=== PATIENT | male | born 1995 | race Caucasian/White ===

== ENCOUNTER 2018-03-24 16:50 | Inpatient (IN) | payer BC, OTHER ==
--- NOTE | 2018-03-24 16:57 | ED ---
SOB HPI - General Stated Complaint: SOB Time Seen by Provider: 03/24/18 16:50 Source: patient, EMS, RN notes reviewed Mode of arrival: EMS - History of Present Illness Initial Comments: This is a 22-year-old male with a benign past medical history who was apparently washing windows prior to admission when he started developing right- sided chest pain. Also some shortness of breath. The pain was sharp and radiates to his back he was seen in outpatient clinic and found on x-ray to have a pneumothorax. He was brought here for evaluation. He complains some pain is brought in by EMS. He did have hypoxemia less he was on nasal cannula oxygen. Is no prior history of pneumothorax no prior history of chest trauma. He is a nonsmoker no other modifying factors at this time MD Complaint: shortness of breath - Related Data Home Medications Medication Instructions Recorded Confirmed No Known Home Medications 03/24/18 03/24/18 Allergies Allergy/AdvReac Type Severity Reaction Status Date / Time No Known Allergies Allergy Verified 03/24/18 17:01 Review of Systems ROS Statement: Those systems with pertinent positive or pertinent negative responses have been documented in the HPI. ROS Other: All systems not noted in ROS Statement are negative. Past Medical History Additional Past Medical History / Comment(s): heart murmur History of Any Multi-Drug Resistant Organisms: None Reported Past Surgical History: No Surgical Hx Reported Past Psychological History: No Psychological Hx Reported Smoking Status: Never smoker Past Alcohol Use History: None Reported Past Drug Use History: None Reported General Exam - General Exam Comments Initial Comments: This is a well-developed well-nourished awake alert oriented 3 male General appearance: alert, anxious, in distress Head exam: Present: atraumatic, normocephalic, normal inspection Eye exam: Present: normal appearance, PERRL, EOMI. Absent: scleral icterus, conjunctival injection, periorbital swelling ENT exam: Present: normal exam, mucous membranes moist Neck exam: Present: normal inspection, full ROM, other (Trachea is midline). Absent: tenderness, meningismus, lymphadenopathy Respiratory exam: Present: decreased breath sounds, other (Decreased breath sounds especially on the right.). Absent: respiratory distress, wheezes, rales , rhonchi, stridor Cardiovascular Exam: Present: regular rate, normal rhythm, normal heart sounds. Absent: systolic murmur, diastolic murmur, rubs, gallop, clicks GI/Abdominal exam: Present: soft, normal bowel sounds. Absent: distended, tenderness, guarding, rebound, rigid Extremities exam: Present: normal inspection, full ROM, normal capillary refill. Absent: tenderness, pedal edema, joint swelling, calf tenderness Back exam: Present: normal inspection Neurological exam: Present: alert, oriented X3, CN II-XII intact Psychiatric exam: Present: normal affect, normal mood Skin exam: Present: warm, dry, intact, normal color. Absent: rash Course Vital Signs 03/24/18 03/24/18 03/24/18 16:52 17:01 17:09 Temperature 97.9 F Pulse Rate 81 76 Respiratory 16 18 16 Rate Blood Pressure 99/57 129/72 O2 Sat by Pulse 100 98 Oximetry 03/24/18 03/24/18 03/24/18 17:26 17:51 18:24 Temperature Pulse Rate 93 92 91 Respiratory 16 16 16 Rate Blood Pressure 139/71 127/82 133/76 O2 Sat by Pulse 100 100 100 Oximetry - Reevaluation(s) Reevaluation #1: 03/24/18 19:37 I did discuss the case with radiologist who did call me he did seem to be x-ray evidence of some tension with respect to the pneumothorax initially clinically there was none. Reevaluation #2: 03/24/18 19:38 Reevaluation the patient is feeling much improved increased aeration on the right side. Procedures - Chest Tube Insertion Consent Obtained: emergent situation Time Out Performed: Yes Indication: Pneumothorax Placed on monitor/pulse oximetry: Yes Site Prep: Chloroprep Local Anesthesia: Lidocaine 1% Amount (mLs): 5 Insertion Site: Other (Second intercostal space anterior right chest mid clavicular line) Scalpel: #11 Tube Size (Norwegian): Other (Thora-vent) Returns: Air Sutured in Place: No (Adhesive) Attached to Suction: Yes Repeat X-ray Results: Other (Partial inflation) Patient Tolerated Procedure: well Medical Decision Making - Medical Decision Making The patient was observed for a period time and did feel much improved required minimal oxygen support. His pain is improved. I did discuss the case with Dr. Lockwood. He admitted for observation and further evaluation. Dr. Loera is being covered by the hospitalist group today. - EKG Data -: EKG Interpreted by Me EKG shows normal: sinus rhythm (Sinus rhythm rate of 84. Interval 140 QRS duration 116 daily since QTC of . Word axis incomplete right bundle- branch block no acute ST-T wave changes) - Radiology Data Radiology results: report reviewed (Review the repeat x-ray #2 reveals good inflation of the right lung.), image reviewed Critical Care Time Critical Care Time: Yes Critical Care Time: 32 minutes of critical care time which includes discussion with paramedics regarding the transport history physical labs x-rays multiple reevaluation the patient to responsive therapy this does not include the procedure tube thoracostomy placement. Discussion with the admitting physician admission orders and documentation of the above. Disposition Clinical Impression: Spontaneous pneumothorax, Thoracostomy tube in place Disposition: ADMITTED IP TO THIS [facility] Condition: Stable Referrals: Luc Loera DO [Primary Care Provider] - 1-2 days
[2018-03-24] MEDS ORDERED: LIDOCAINE 1% INJ 10MG/ML (20 ML MDV) SQ ONE (17:11)
[2018-03-24] MEDS ORDERED: MIDAZOLAM 1 MG/ML 5 ML VIAL IV STA (17:13)
[2018-03-24] MEDS ORDERED: fentaNYL (PF) 50 MCG/ML 2 ML AMP IV STA (17:14)
--- NOTE | 2018-03-24 17:19 | XR ---
EXAMINATION TYPE: XR chest 1V portable DATE OF EXAM: 03/24/2018 COMPARISON: 12/17/2011 HISTORY: Short of breath TECHNIQUE: Single frontal view of the chest is obtained. FINDINGS: There is a large right pneumothorax. There is some shift of the heart and mediastinum to t he left side. There are chest leads. Bony thorax is intact. IMPRESSION: 100% right sided pneumothorax with some tension. This exam was discussed with ER micah henderson at 5:10 PM.
--- NOTE | 2018-03-24 17:58 | XR ---
EXAMINATION TYPE: XR chest 1V portable DATE OF EXAM: 03/24/2018 COMPARISON: Today HISTORY: Pneumothorax TECHNIQUE: Single frontal view of the chest is obtained. FINDINGS: There is a right chest tube that appears to be in good position. There is 100% right pneum othorax with shift of the heart and mediastinum to the left side. IMPRESSION: Persistent tension right pneumothorax without change.
--- NOTE | 2018-03-24 18:13 | XR ---
EXAMINATION TYPE: XR chest 1V portable DATE OF EXAM: 03/24/2018 COMPARISON: Today HISTORY: Follow-up pneumothorax TECHNIQUE: Single frontal view of the chest is obtained. FINDINGS: Right chest tube is in good position. There is an approximate 25% right pneumothorax. Trac hea is midline. IMPRESSION: Significant improvement in the right sided pneumothorax.
[2018-03-24] MEDS ORDERED: fentaNYL (PF) 50 MCG/ML 2 ML AMP IVP STA (19:15)
[2018-03-24] MEDS ORDERED: ACETAMINOPHEN TAB 325 MG TAB PO PRN (19:39)
[2018-03-24] MEDS ORDERED: NALOXONE 0.4 MG/ML 1 ML VIAL IV PRN (19:39)
[2018-03-24] MEDS: SODIUM CHLORIDE 0.9% 1,000 ML IV SCH (20:31)
[2018-03-24 20:55] VITALS: BMI 18.3
[2018-03-24] MEDS: HYDROmorphone 0.5 MG/0.5 ML SYRINGE IVP PRN (22:03)
[2018-03-25] MEDS: HYDROmorphone 0.5 MG/0.5 ML SYRINGE IVP PRN ×4 (03:34→18:45)
--- NOTE | 2018-03-25 07:26 | XR ---
EXAMINATION TYPE: XR chest 1V portable DATE OF EXAM: 03/25/2018 Comparison: 03/24/2018 Clinical History: 22-year-old male with pain, follow-up spontaneous pneumothorax on the right Findings: Slight dextroconvex scoliosis. Heart normal size. There is slight shift of the heart towards the left and enlargement of the patient's right-sided pneumothorax, now moderate in size, estimated at 40%. T he pleural edge measures 4.7 cm to the apex there is prominent lateral component measuring 2.4 cm. A Thoravent is present in the first intercostal space on the right. Patchy right infrahilar and right b asilar opacity likely represents atelectasis. IMPRESSION: 1. Right-sided Thora vent in place within the first intercostal space. 2. Enlarging right-sided pneumothorax estimated at 40%. There is slight shift of the heart towards th e left; developing tension not excluded. Critical findings (#2) called to nurse Brewer on [facility] at 7:20am.
--- NOTE | 2018-03-25 09:51 | P.GSCN ---
History of Present Illness Consult date: 03/25/18 Reason for Consult: Spontaneous pneumothorax Requesting physician: Yesica Lockwood History of present illness: This is a 22-year-old who follows with Dr. Luc Loera on an outpatient basis. He has no previous medical history other than questionable exercise-induced asthma when he was in his early teens for which she received no treatment. Apparently he had been washing windows and had sudden right-sided sharp chest pain and shortness of breath. He presented to an outpatient clinic, a chest x- ray was completed demonstrating 100% pneumothorax on the right side. He was sent to the emergency room where thoravent was placed by the emergency room physicians with good re-expansion of the lung. This young man was admitted for further evaluation and treatment. This morning's chest x-ray demonstrated enlargement of the right-sided pneumothorax despite thoravent treatment. Dr. Ford from cardiothoracic surgery was consulted regarding management. Of note , he states he has never had a pneumothorax in the past. Review of Systems Review of systems was completed and was negative except as noted in the HPI. - Cardiovascular Reports chest pain - Respiratory Reports dyspnea Past Medical History Additional Past Medical History / Comment(s): heart murmur, mono 2013, seasonal allergies History of Any Multi-Drug Resistant Organisms: None Reported Past Surgical History: No Surgical Hx Reported Past Psychological History: No Psychological Hx Reported Smoking Status: Never smoker Past Alcohol Use History: None Reported Past Drug Use History: None Reported Medications and Allergies Home Medications Medication Instructions Recorded Confirmed Type No Known Home Medications 03/24/18 03/24/18 History Allergies Allergy/AdvReac Type Severity Reaction Status Date / Time No Known Allergies Allergy Verified 03/24/18 17:01 Surgical - Exam Vital Signs Temp Pulse Resp BP Pulse Ox 97.9 F 81 16 99/57 100 03/24/18 16:52 03/24/18 16:52 03/24/18 16:52 03/24/18 16:52 03/24/18 16:52 - General well developed, well nourished, no distress, no pain - Eyes PERRL, normal ocular movement - ENT no hearing loss - Neck no masses, no bruits, trachea midline - Respiratory Lungs sounds diminished on the right. Respirations even, nonlabored. He was on 2 L nasal cannula with oxygen saturation 99%. Right thoravent present to anterior chest wall, positive fluctuation of the red diaphragm with coughing indicating air leak present. - Cardiovascular S1, S2 present. Regular rate and rhythm. Palpable peripheral pulses bilaterally. No edema present. No calf pain or tenderness noted. - Abdomen Abdomen: soft, non tender, bowel sounds - Genitourinary Deferred - Rectum Deferred - Integumentary Skin is warm and dry with evidence of good perfusion. no rash, no growths, no abnormal pigmentation - Neurologic normal coordination, normal sensation - Psychiatric oriented to time, oriented to person, oriented to place, speech is normal, memory intact Results - Imaging Chest x-ray: report reviewed, image reviewed Assessment and Plan (1) Spontaneous pneumothorax Current Visit: Yes Status: Acute Code(s): J93.83 - OTHER PNEUMOTHORAX SNOMED Code(s): 43849078 (2) Thoracostomy tube in place Current Visit: Yes Status: Acute Code(s): Z96.89 - PRESENCE OF OTHER SPECIFIED FUNCTIONAL IMPLANTS SNOMED Code(s): 501244764 Plan: The patient was seen and examined at the bedside. Chart/diagnostics were reviewed. Will discuss the case with Dr. Ford. Thoravent connected to atrium with -20 cm wall suction. Encourage incentive spirometry use 10 times every hour. Patient needs to ambulate. 8 L high flow nasal cannula ordered. We will repeat chest x-ray. Medical management per primary care, pulmonology. Thank you Dr. Lockwood for this consult. We look forward to working with you in the care of your patient. Time with Patient: Greater than 30
--- NOTE | 2018-03-25 10:36 | XR ---
EXAMINATION TYPE: XR chest 1V portable DATE OF EXAM: 03/25/2018 Comparison: Earlier today Clinical History: 22-year-old male follow-up pneumothorax Findings: The cardiomediastinal silhouette, aorta, and pulmonary vasculature are within normal limits. Lungs and pleural spaces are clear. Right-sided dural vent is in place now seen within the second interco stal space. There is been reexpansion of the right lung. Impression: Reexpansion of the right lung with Thora vent in place.
[2018-03-25] MEDS ORDERED: KETOROLAC 30 MG/ML 1 ML VIAL IVP PRN (13:06)
--- NOTE | 2018-03-25 13:30 | P.CNPUL ---
History of Present Illness Consult date: 03/25/18 Requesting physician: Luc Loera Reason for consult: pneumothorax, abnormal CXR/CT Chief complaint: Right spontaneous pneumothorax History of present illness: Placido is a 22-year-old white male patient of Dr. Luc Loera, who presented to the emergency department per EMS on at 1650 with complaints of increased shortness of breath, right-sided chest pain. 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 Chest x- ray in the emergency room revealed 100% right pneumothorax with mediastinal shift to the left. Patient had a thoravent placed by the emergency room physician, and subsequent chest x-rays yesterday showed significant improvement of the right-sided pneumothorax with a residual of 25% right pneumothorax. However on today's chest x-rays from this morning patient was noted to have an enlarging right-sided pneumothorax estimated at 40% with slight shift of the heart towards the left, and the thoravent was placed to continuous wall suction. Cardiothoracic surgery was consulted, follow-up chest x-ray from 10: 00 today shows reexpansion of the right lung. Patient denies previous episodes of collapse, he is a nonsmoker, does not smoke marijuana or do any other recreational drugs. No history of trauma. Patient was seen this morning in consultation for spontaneous right pneumothorax, he is home and comfortable, there is a Thoravent in the right upper chest connected to continuous suction, is still a small air leak noted. Patient is on high flow oxygen at 8 L, with a pulse ox of 99%. He is achieving 2200 on the incentive spirometry, is having some moderate amount of discomfort in the right upper chest area at the insertion site of the Thoravent. This is reasonably well controlled by Dilaudid. Otherwise patient is fairly comfortable, no other medical history, no prior surgeries. Review of Systems All systems: negative Constitutional: Denies chills, Denies fever Eyes: denies blurred vision, denies pain Ears, nose, mouth and throat: Denies headache, Denies sore throat Cardiovascular: Denies chest pain, Denies shortness of breath Respiratory: Reports dyspnea, Reports pain, Denies cough Gastrointestinal: Denies abdominal pain, Denies diarrhea, Denies nausea, Denies vomiting Musculoskeletal: Denies myalgias Integumentary: Denies pruritus, Denies rash Neurological: Denies numbness, Denies weakness Psychiatric: Denies anxiety, Denies depression Endocrine: Denies fatigue, Denies weight change Past Medical History Additional Past Medical History / Comment(s): heart murmur, mono 2014, seasonal allergies History of Any Multi-Drug Resistant Organisms: None Reported Past Surgical History: No Surgical Hx Reported Past Psychological History: No Psychological Hx Reported Smoking Status: Never smoker Past Alcohol Use History: None Reported Past Drug Use History: None Reported Medications and Allergies Home Medications Medication Instructions Recorded Confirmed Type No Known Home Medications 03/24/18 03/24/18 History Allergies Allergy/AdvReac Type Severity Reaction Status Date / Time No Known Allergies Allergy Verified 03/24/18 17:01 Physical Exam Vitals: Vital Signs Temp Pulse Pulse Resp BP BP Pulse Ox 03/25/18 12:18 64 16 99 03/25/18 10:30 99 03/25/18 08:30 16 100 03/25/18 07:35 66 16 107/66 98 03/25/18 07:21 95 03/25/18 06:05 98.1 F 75 16 108/68 98 03/24/18 23:00 99.3 F 95 16 113/72 98 03/24/18 20:25 98.1 F 85 16 117/69 99 03/24/18 20:09 88 17 129/68 100 03/24/18 18:24 91 16 133/76 100 03/24/18 17:51 92 16 127/82 100 03/24/18 17:26 93 16 139/71 100 03/24/18 17:09 76 16 129/72 98 03/24/18 17:01 18 03/24/18 16:52 97.9 F 81 16 99/57 100 Intake and Output 03/24/18 03/25/18 03/25/18 22:59 06:59 14:59 Other: Voiding Method Toilet # Voids 1 1 Weight 68.5 kg 68.5 kg GENERAL EXAM: Alert, pleasant, thin and tall young white male, comfortable in no apparent distress. On 8 L per high flow nasal cannula HEAD: Normocephalic/atraumatic. EYES: Normal reaction of pupils, equal size. Conjunctiva pink, sclera white. NOSE: Clear with pink turbinates. THROAT: No erythema or exudates. NECK: No masses, no JVD, no thyroid enlargement, no adenopathy. CHEST: No chest wall deformity. right upper chest Thoravent in place connected to Pleuravac and continous wall suction, small air leak noted with deep inspiration LUNGS: Equal air entry with no crackles, wheeze, rhonchi or dullness. Diminished breath sounds bilaterally CVS: Regular rate and rhythm, normal S1 and S2, no gallops, no murmurs, no rubs ABDOMEN: Soft, nontender. No hepatosplenomegaly, normal bowel sounds, no guarding or rigidity. EXTREMITIES: No clubbing, no edema, no cyanosis, 2+ pulses and upper and lower extremities. MUSCULOSKELETAL: Muscle strength and tone normal. SPINE: No scoliosis or deformity SKIN: No rashes CENTRAL NERVOUS SYSTEM: Alert and oriented -3. No focal deficits, tone is normal in all 4 extremities. PSYCHIATRIC: Alert and oriented -3. Appropriate affect. Intact judgment and insight. Results - Diagnostic Findings Chest x-ray: report reviewed, image reviewed Additional studies: EKG reviewed Assessment and Plan Plan: Assessment: #1. Spontaneous right pneumothorax, status post Thoravent placement #2. Dyspnea, chest pain, hypoxemia, due to the above, improved #3. Lifetime nonsmoker Plan: Thoravent was placed to suction,and there is still a small air leak noted, follow-up chest x-ray showed reexpansion of the right lung. Continue pain control, continue incentive spirometry. Ambulation, continue high flow nasal cannula per CT surgery. The chest x-ray in the morning. I performed a history & physical examination of the patient and discussed their management with my nurse practitioner, Polina Slater. I reviewed the nurse practitioner's note and agree with the documented findings and plan of care. Lung sounds are positive diminished lung sounds. The findings and the impression was discussed with the patient. I attest to the documentation by the nurse practitioner.
--- NOTE | 2018-03-25 14:25 | P.HPIM ---
History of Present Illness Patient is a pleasant 22-year-old man came in none after an episode of coughing coughing ended up having spontaneous pneumothorax involving the entire right chest present did which has been shortness of breath patient has a chest tube in place now. With significant improvement in his symptoms. Patient was evaluated by cardiovascular thoracic surgery and pulmonary. Patient has a chest tube in place. No significant pain at this time. Patient will be started on nonsteroidal anti-inflammatory is rather than opiates for pain and try to avoid opiates. Off note patient does have signs consistent with Marfan syndrome including systolic murmur in the mitral area, positive wrist sign and Thumb sign and he is a tall gentleman. Patient is presently on 8 L of oxygen. Review of Systems REVIEW OF SYSTEMS: CONSTITUTIONAL: No fever, no malaise, no fatigue. HEENT: No recent visual problems or hearing problems. Denied any sore throat. CARDIOVASCULAR: No orthopnea, PND, no palpitations, no syncope. PULMONARY: Shortness of breath GASTROINTESTINAL: No diarrhea, no nausea, no vomiting, no abdominal pain. Normoactive bowel sounds. NEUROLOGICAL: No headaches, no weakness, no numbness. HEMATOLOGICAL: Denies any bleeding or petechiae. GENITOURINARY: Denies any burning micturition, frequency, or urgency. MUSCULOSKELETAL/RHEUMATOLOGICAL: Denies any joint pain, swelling, or any muscle pain. ENDOCRINE: Denies any polyuria or polydipsia. The rest of the 14-point review of systems is negative. Past Medical History Additional Past Medical History / Comment(s): heart murmur, mono 2014, seasonal allergies History of Any Multi-Drug Resistant Organisms: None Reported Past Surgical History: No Surgical Hx Reported Past Psychological History: No Psychological Hx Reported Smoking Status: Never smoker Past Alcohol Use History: None Reported Past Drug Use History: None Reported Medications and Allergies Home Medications Medication Instructions Recorded Confirmed Type No Known Home Medications 03/24/18 03/24/18 History Allergies Allergy/AdvReac Type Severity Reaction Status Date / Time No Known Allergies Allergy Verified 03/24/18 17:01 Physical Exam Vitals: Vital Signs Temp Pulse Pulse Resp BP BP Pulse Ox 03/25/18 12:18 64 16 99 03/25/18 10:30 99 03/25/18 08:30 16 100 03/25/18 07:35 66 16 107/66 98 06/29/18 07:21 95 03/25/18 06:05 98.1 F 75 16 108/68 98 03/24/18 23:00 99.3 F 95 16 113/72 98 03/24/18 20:25 98.1 F 85 16 117/69 99 03/24/18 20:09 88 17 129/68 100 03/24/18 18:24 91 16 133/76 100 03/24/18 17:51 92 16 127/82 100 03/24/18 17:26 93 16 139/71 100 03/24/18 17:09 76 16 129/72 98 03/24/18 17:01 18 03/24/18 16:52 97.9 F 81 16 99/57 100 Intake and Output 03/24/18 03/25/18 03/25/18 22:59 06:59 14:59 Other: Voiding Method Toilet # Voids 1 1 Weight 68.5 kg 68.5 kg PHYSICAL EXAMINATION: GENERAL: The patient is alert and oriented x3, not in any acute distress. Well developed, well nourished. HEENT: Pupils are round and equally reacting to light. EOMI. No scleral icterus. No conjunctival pallor. Normocephalic, atraumatic. No pharyngeal erythema. No thyromegaly. CARDIOVASCULAR: S1 and S2 present. No murmurs, rubs, or gallops. PULMONARY: Chest is clear to auscultation, no wheezing or crackles. Patient has a right-sided chest tube. ABDOMEN: Soft, nontender, nondistended, normoactive bowel sounds. No palpable organomegaly. MUSCULOSKELETAL: No joint swelling or deformity. EXTREMITIES: No cyanosis, clubbing, or pedal edema. NEUROLOGICAL: Gross neurological examination did not reveal any focal deficits. SKIN: No rashes. Thrombosis Risk Factor Assmnt - Choose All That Apply Any of the Below Risk Factors Present?: No Other Risk Factors: No Thrombosis Risk Factor Assessment Level: Very Low Risk Assessment and Plan Plan: -Spontaneous right-sided pneumothorax patient has a chest tube in place an prominent in place. -Possibility of Marfan's or some other congenital collagen connective tissue disorder, need to be further evaluated as an outpatient for Marfan's. Will need an echocardiogram as an outpatient. -Acute hypoxic respiratory failure secondary to right-sided pneumothorax.
[2018-03-25] MEDS: KETOROLAC 30 MG/ML 1 ML VIAL IVP PRN ×2 (15:06→21:22)
[2018-03-25] MEDS: FAMOTIDINE 20 MG TAB PO SCH ×2 (15:06→20:20)
[2018-03-25] MEDS: SODIUM CHLORIDE 0.9% 1,000 ML IV SCH (20:22)
[2018-03-26] MEDS: KETOROLAC 30 MG/ML 1 ML VIAL IVP PRN ×3 (05:03→18:44)
--- NOTE | 2018-03-26 08:18 | XR ---
EXAMINATION TYPE: XR chest 2V DATE OF EXAM: 03/26/2018 COMPARISON: Prior chest 03/25/2018 HISTORY: Pneumothorax TECHNIQUE: Frontal and lateral views of the chest are obtained on 3 images. FINDINGS: Right-sided chest tube is in place similar to prior, small apical right pneumothorax is pr esent. No evident pleural effusion. Heart is small. No other significant interval change. IMPRESSION: Small right apical pneumothorax. Indwelling chest tube.
[2018-03-26] MEDS: FAMOTIDINE 20 MG TAB PO SCH ×2 (09:12→20:52)
--- NOTE | 2018-03-26 10:01 | P.PN ---
Subjective Progress Note Date: 03/26/18 Principal diagnosis: Spontaneous right-sided pneumothorax. No previous medical history other than questionable exercise-induced asthma in his early teens for which he received no treatment. POD #2 thoravent placement by the emergency room physicians. Patient's currently sitting up in bed in no acute distress. States his pain is controlled on current medications. Denies shortness of breath. No new complaints. Objective - Vital Signs Vital signs: Vital Signs Temp 96.9 F L 03/26/18 06:37 Pulse 57 L 03/26/18 06:37 Resp 18 03/26/18 06:37 BP 132/77 03/26/18 06:37 Pulse Ox 100 03/26/18 06:37 Intake & Output 03/25/18 03/26/18 03/26/18 18:59 06:59 18:59 Intake Total 600 1500 Balance 600 1500 Weight 68.5 kg 68.5 kg Intake: Oral 600 1500 Other: Voiding Method Toilet # Voids 2 1 - Constitutional General appearance: Present: cooperative, no acute distress - Respiratory Details: Lungs sounds diminished on the right. Respirations even, nonlabored. Currently on 8 L high flow nasal cannula with oxygen saturation 100%. Able to achieve 3500 mL on his incentive spirometry. Right thoravent present to anterior chest wall, positive fluctuation of the red diaphragm with coughing, connected to atrium with no air leaking into the atrium. - Cardiovascular Details: S1, S2 present. Regular rate and rhythm. Palpable peripheral pulses bilaterally. No edema present. No calf pain or tenderness noted. - Gastrointestinal Gastrointestinal Comment(s): Abdomen soft, nontender, nondistended. Active bowel sounds 4 quadrants. Tolerating diet. - Genitourinary Genitourinary Comment(s): Continues to void clear, yellow urine. - Integumentary Integumentary Comment(s): Skin is warm and dry with evidence of good perfusion. - Neurologic Neurologic: Present: CNII-XII intact - Musculoskeletal Musculoskeletal: Present: gait normal, strength equal bilaterally - Psychiatric Psychiatric: Present: A&O x's 3, appropriate affect, intact judgment & insight - Allied health notes Allied health notes reviewed: nursing - Imaging and Cardiology Chest x-ray: report reviewed, image reviewed Assessment and Plan (1) Spontaneous pneumothorax Current Visit: Yes Status: Acute Code(s): J93.83 - OTHER PNEUMOTHORAX SNOMED Code(s): 55456337 (2) Thoracostomy tube in place Current Visit: Yes Status: Acute Code(s): Z96.89 - PRESENCE OF OTHER SPECIFIED FUNCTIONAL IMPLANTS SNOMED Code(s): 186536850 Plan: 1. Atrium placed to waterseal. Will check x-ray in the morning. 2. Continue 8 L high flow nasal cannula. 3. Encourage incentive spirometry use 10 times every hour. 4. Pain management with ordered medications. 5. Encourage ambulation in the hallway. 6. Medical management per primary care, pulmonology. 7. No indication for surgical intervention at this time. 8. More recommendations to follow. Time with Patient: Greater than 30
--- NOTE | 2018-03-26 11:24 | P.PN ---
Subjective Progress Note Date: 03/26/18 Principal diagnosis: Acute right-sided spontaneous pneumothoraxShahana Cummins is a 22-year-old white male patient of Dr. Luc Loera, who presented to the emergency department per EMS on at 1650 with complaints of increased shortness of breath, right-sided chest pain. 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 Chest x- ray in the emergency room revealed 100% right pneumothorax with mediastinal shift to the left. Patient had a thoravent placed by the emergency room physician, and subsequent chest x-rays yesterday showed significant improvement of the right-sided pneumothorax with a residual of 25% right pneumothorax. However on today's chest x-rays from this morning patient was noted to have an enlarging right-sided pneumothorax estimated at 40% with slight shift of the heart towards the left, and the thoravent was placed to continuous wall suction. Cardiothoracic surgery was consulted, follow-up chest x-ray from 10: 00 today shows reexpansion of the right lung. Patient denies previous episodes of collapse, he is a nonsmoker, does not smoke marijuana or do any other recreational drugs. No history of trauma. Patient was seen this morning in consultation for spontaneous right pneumothorax, he is home and comfortable, there is a Thoravent in the right upper chest connected to continuous suction, is still a small air leak noted. Patient is on high flow oxygen at 8 L, with a pulse ox of 99%. He is achieving 2200 on the incentive spirometry, is having some moderate amount of discomfort in the right upper chest area at the insertion site of the Thoravent. This is reasonably well controlled by Dilaudid. Otherwise patient is fairly comfortable, no other medical history, no prior surgeries. The patient is seen again today 03/26/2018 in follow-up on the regular medical floor. He is awake and alert in no acute distress. He is breathing easier today as compared to yesterday. Today's chest x-ray shows a small apical pneumothorax. Thoravent remains in place currently to waterseal. He remains on 8 L high flow nasal cannula. He is working well with the incentive spirometer. Objective - Vital Signs Vital signs: Vital Signs Temp 96.9 F L 03/26/18 06:37 Pulse 57 L 03/26/18 06:37 Resp 18 03/26/18 06:37 BP 132/77 03/26/18 06:37 Pulse Ox 100 03/26/18 06:37 Intake & Output 03/25/18 03/26/18 03/26/18 18:59 06:59 18:59 Intake Total 600 1500 Balance 600 1500 Weight 68.5 kg 68.5 kg Intake: Oral 600 1500 Other: Voiding Method Toilet # Voids 2 1 - Exam GENERAL EXAM: Alert, pleasant, thin and tall young white male, comfortable in no apparent distress. On 8 L per high flow nasal cannula HEAD: Normocephalic/atraumatic. EYES: Normal reaction of pupils, equal size. Conjunctiva pink, sclera white. NOSE: Clear with pink turbinates. THROAT: No erythema or exudates. NECK: No masses, no JVD, no thyroid enlargement, no adenopathy. CHEST: No chest wall deformity. right upper chest Thoravent placed to waterseal LUNGS: Equal air entry with no crackles, wheeze, rhonchi or dullness. Diminished breath sounds bilaterally CVS: Regular rate and rhythm, normal S1 and S2, no gallops, no murmurs, no rubs ABDOMEN: Soft, nontender. No hepatosplenomegaly, normal bowel sounds, no guarding or rigidity. EXTREMITIES: No clubbing, no edema, no cyanosis, 2+ pulses and upper and lower extremities. MUSCULOSKELETAL: Muscle strength and tone normal. SPINE: No scoliosis or deformity SKIN: No rashes CENTRAL NERVOUS SYSTEM: Alert and oriented -3. No focal deficits, tone is normal in all 4 extremities. PSYCHIATRIC: Alert and oriented -3. Appropriate affect. Intact judgment and insight. Assessment and Plan Assessment: Assessment: #1. Acute hypoxic respiratory failure secondary to spontaneous right pneumothorax, status post Thoravent placement #2. Dyspnea, chest pain, hypoxemia, due to the above, improved #3. Lifetime nonsmoker Plan: The patient was seen and evaluated by Dr. Lockwood. Chest x-ray was reviewed. Currently set to water seal. Repeat a chest x-ray in the a.m. If he develops recurrent pneumothorax cardiothoracic services will plan for surgical intervention early next week. In the interim, we will increase his activity as tolerated. Continue to work with the incentive spirometer. We'll continue to follow and make further recommendations based on his clinical status.
--- NOTE | 2018-03-26 15:46 | P.PN ---
Subjective Patient was admitted with a spontaneous pneumothorax patient has a right-sided chest tube, suctioning was discontinued. His chest pain is well-controlled. Constitutional: Denied any fatigue denied any fever. Cardio vascular: denied any chest pain, palpitations Gastrointestinal denied any nausea vomiting Pulmonary: Denied any shortness of breath cough Neurologic denied any new focal deficits Objective - Vital Signs Vital signs: Vital Signs Temp 97.3 F L 03/26/18 15:00 Pulse 67 03/26/18 15:00 Resp 17 03/26/18 15:00 BP 109/71 03/26/18 15:00 Pulse Ox 100 03/26/18 15:00 Intake & Output 03/25/18 03/26/18 03/26/18 18:59 06:59 18:59 Intake Total 600 1500 Balance 600 1500 Weight 68.5 kg 68.5 kg Intake: Oral 600 1500 Other: Voiding Method Toilet # Voids 2 1 2 # Bowel Movements 1 - Exam PHYSICAL EXAMINATION: GENERAL: The patient is alert and oriented x3, not in any acute distress. Well developed, well nourished. HEENT: Pupils are round and equally reacting to light. EOMI. No scleral icterus. No conjunctival pallor. Normocephalic, atraumatic. No pharyngeal erythema. No thyromegaly. CARDIOVASCULAR: S1 and S2 present. No murmurs, rubs, or gallops. PULMONARY: Chest is clear to auscultation, no wheezing or crackles. Patient has a right-sided chest tube. ABDOMEN: Soft, nontender, nondistended, normoactive bowel sounds. No palpable organomegaly. MUSCULOSKELETAL: No joint swelling or deformity. EXTREMITIES: No cyanosis, clubbing, or pedal edema. NEUROLOGICAL: Gross neurological examination did not reveal any focal deficits. SKIN: No rashes. Assessment and Plan Plan: -Spontaneous right-sided pneumothorax patient has a chest tube in place -Possibility of Marfan's or some other congenital collagen connective tissue disorder, need to be further evaluated as an outpatient for Marfan's. Will need an echocardiogram as an outpatient. -Acute hypoxic respiratory failure secondary to right-sided pneumothorax.
[2018-03-26] MEDS: HYDROmorphone 0.5 MG/0.5 ML SYRINGE IVP PRN ×2 (16:03→23:26)
[2018-03-26] MEDS: SODIUM CHLORIDE 0.9% 1,000 ML IV SCH (19:34)
[2018-03-27] MEDS: KETOROLAC 30 MG/ML 1 ML VIAL IVP PRN ×3 (03:38→20:34)
--- NOTE | 2018-03-27 07:49 | P.PN ---
Subjective Progress Note Date: 03/27/18 Principal diagnosis: Spontaneous right-sided pneumothorax. No previous medical history other than questionable exercise-induced asthma in his early teens for which he received no treatment. POD #3 thoravent placement by the emergency room physicians. Patient's currently sitting up in bed in no acute distress. States his pain is controlled on current medications. Denies shortness of breath. No new complaints. Objective - Vital Signs Vital signs: Vital Signs Temp 96.8 F L 03/27/18 06:24 Pulse 82 03/27/18 06:24 Resp 18 03/27/18 06:24 BP 118/74 03/27/18 06:24 Pulse Ox 98 03/27/18 06:24 Intake & Output 03/26/18 03/27/18 03/27/18 18:59 06:59 18:59 Intake Total 1100 Balance 1100 Weight 68.5 kg Intake: Oral 1100 Other: Voiding Method Toilet Toilet # Voids 2 2 # Bowel Movements 1 - Constitutional General appearance: Present: cooperative, no acute distress - Respiratory Details: Lungs sounds diminished on the right. Respirations even, nonlabored. Currently on 8 L high flow nasal cannula with oxygen saturation 98%. Able to achieve 4000 mL on his incentive spirometry. Right thoravent present to anterior chest wall, placed to waterseal yesterday, positive fluctuation of the red diaphragm with coughing, connected to atrium with no air leaking into the atrium. - Cardiovascular Details: S1, S2 present. Regular rate and rhythm. Palpable peripheral pulses bilaterally. No edema present. No calf pain or tenderness noted. - Gastrointestinal Gastrointestinal Comment(s): Abdomen soft, nontender, nondistended. Active bowel sounds 4 quadrants. Tolerating diet. Positive bowel movement. - Genitourinary Genitourinary Comment(s): Continues to void clear, yellow urine. - Integumentary Integumentary Comment(s): Skin is warm and dry with evidence of good perfusion. - Neurologic Neurologic: Present: CNII-XII intact - Musculoskeletal Musculoskeletal: Present: gait normal, strength equal bilaterally - Psychiatric Psychiatric: Present: A&O x's 3, appropriate affect, intact judgment & insight - Allied health notes Allied health notes reviewed: nursing - Imaging and Cardiology Chest x-ray: image reviewed Assessment and Plan (1) Spontaneous pneumothorax Current Visit: Yes Status: Acute Code(s): J93.83 - OTHER PNEUMOTHORAX SNOMED Code(s): 69161001 (2) Thoracostomy tube in place Current Visit: Yes Status: Acute Code(s): Z96.89 - PRESENCE OF OTHER SPECIFIED FUNCTIONAL IMPLANTS SNOMED Code(s): 134698994 Plan: 1. Continue current method of treatment, atrium to waterseal. Will check x- ray in the morning. 2. Continue 8 L high flow nasal cannula. 3. Encourage incentive spirometry use 10 times every hour. 4. Pain management with ordered medications. 5. Encourage ambulation in the hallway. 6. Medical management per primary care, pulmonology. 7. Will monitor for resolution of pneumothorax, air leak and make determination regarding surgical intervention early this week. 8. More recommendations to follow. Time with Patient: Greater than 30
[2018-03-27] MEDS: FAMOTIDINE 20 MG TAB PO SCH ×2 (08:29→20:26)
--- NOTE | 2018-03-27 08:29 | XR ---
EXAMINATION TYPE: XR chest 2V DATE OF EXAM: 03/27/2018 COMPARISON: Prior chest x-ray 03/26/2018 HISTORY: Pneumothorax, chest tube TECHNIQUE: Frontal and lateral views of the chest are obtained. FINDINGS: Small right apical pneumothorax persists. Right-sided chest tube is in place. No evident e ffusion. IMPRESSION: No significant interval change. Chest tube in place, small right apical pneumothorax.
[2018-03-27] MEDS: HYDROmorphone 0.5 MG/0.5 ML SYRINGE IVP PRN (12:15)
--- NOTE | 2018-03-27 15:05 | P.PN ---
Subjective Progress Note Date: 03/27/18 Principal diagnosis: Acute right sided spontaneous pneumothorax Placido is a 22-year-old white male patient of Dr. Luc Loera, who presented to the emergency department per EMS on at 1650 with complaints of increased shortness of breath, right-sided chest pain. 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 Chest x- ray in the emergency room revealed 100% right pneumothorax with mediastinal shift to the left. Patient had a thoravent placed by the emergency room physician, and subsequent chest x-rays yesterday showed significant improvement of the right-sided pneumothorax with a residual of 25% right pneumothorax. However on today's chest x-rays from this morning patient was noted to have an enlarging right-sided pneumothorax estimated at 40% with slight shift of the heart towards the left, and the thoravent was placed to continuous wall suction. Cardiothoracic surgery was consulted, follow-up chest x-ray from 10: 00 today shows reexpansion of the right lung. Patient denies previous episodes of collapse, he is a nonsmoker, does not smoke marijuana or do any other recreational drugs. No history of trauma. Patient was seen this morning in consultation for spontaneous right pneumothorax, he is home and comfortable, there is a Thoravent in the right upper chest connected to continuous suction, is still a small air leak noted. Patient is on high flow oxygen at 8 L, with a pulse ox of 99%. He is achieving 2200 on the incentive spirometry, is having some moderate amount of discomfort in the right upper chest area at the insertion site of the Thoravent. This is reasonably well controlled by Dilaudid. Otherwise patient is fairly comfortable, no other medical history, no prior surgeries. The patient is seen again today 03/26/2018 in follow-up on the regular medical floor. He is awake and alert in no acute distress. He is breathing easier today as compared to yesterday. Today's chest x-ray shows a small apical pneumothorax. Thoravent remains in place currently to waterseal. He remains on 8 L high flow nasal cannula. He is working well with the incentive spirometer. Patient was reevaluated today on 03/27/2018, doing well, his thoravent remains in place, disconnected from wall suction, patient has a 10% right-sided pneumothorax, there and diaphragm in the device does not seem to be moving much. Which implies that no air leak is noted. Remains on high flow nasal cannula based on recent limited reports suggesting that high flow nasal cannula may improve rapid resolution of pneumothorax. But the patient is actually saturating fine on room air. Objective - Vital Signs Vital signs: Vital Signs Temp 96.8 F L 03/27/18 06:24 Pulse 82 03/27/18 06:24 Resp 18 03/27/18 06:24 BP 118/74 03/27/18 06:24 Pulse Ox 98 03/27/18 06:24 Intake & Output 03/26/18 03/27/18 03/27/18 18:59 06:59 18:59 Intake Total 1100 240 Balance 1100 240 Weight 68.5 kg Intake: Oral 1100 240 Other: Voiding Method Toilet Toilet # Voids 2 2 # Bowel Movements 1 - Exam GENERAL EXAM: Alert, pleasant, thin and tall young white male, comfortable in no apparent distress. On 8 L per high flow nasal cannula HEAD: Normocephalic/atraumatic. EYES: Normal reaction of pupils, equal size. Conjunctiva pink, sclera white. NOSE: Clear with pink turbinates. THROAT: No erythema or exudates. NECK: No masses, no JVD, no thyroid enlargement, no adenopathy. CHEST: No chest wall deformity. right upper chest Thoravent placed to waterseal LUNGS: Equal air entry with no crackles, wheeze, rhonchi or dullness. Diminished breath sounds bilaterally CVS: Regular rate and rhythm, normal S1 and S2, no gallops, no murmurs, no rubs ABDOMEN: Soft, nontender. No hepatosplenomegaly, normal bowel sounds, no guarding or rigidity. EXTREMITIES: No clubbing, no edema, no cyanosis, 2+ pulses and upper and lower extremities. MUSCULOSKELETAL: Muscle strength and tone normal. SPINE: No scoliosis or deformity SKIN: No rashes CENTRAL NERVOUS SYSTEM: Alert and oriented -3. No focal deficits, tone is normal in all 4 extremities. PSYCHIATRIC: Alert and oriented -3. Appropriate affect. Intact judgment and insight. Assessment and Plan Assessment: #1. Acute hypoxic respiratory failure secondary to spontaneous right pneumothorax, status post Thoravent placement #2. Dyspnea, chest pain, hypoxemia, due to the above, improved #3. Lifetime nonsmoker Recommendation: Continue present treatment plan, repeat chest x-ray in a.m., not quite ready for discharge planning at this point. Time with Patient: Less than 30
--- NOTE | 2018-03-27 16:06 | P.PN ---
Subjective Patient was admitted with a spontaneous pneumothorax patient has a right-sided chest tube, suctioning was discontinued. His chest pain is well-controlled. 03/27/2018 Patient's chest tube was removed, is clinically doing well and repeat chest x- ray tomorrow possibility of discharge tomorrow. Constitutional: Denied any fatigue denied any fever. Cardio vascular: denied any chest pain, palpitations Gastrointestinal denied any nausea vomiting Pulmonary: Denied any shortness of breath cough Neurologic denied any new focal deficits Objective - Vital Signs Vital signs: Vital Signs Temp 98.7 F 03/27/18 15:33 Pulse 65 03/27/18 15:33 Resp 18 03/27/18 15:33 BP 114/70 03/27/18 15:33 Pulse Ox 100 03/27/18 15:33 Intake & Output 03/26/18 03/27/18 03/27/18 18:59 06:59 18:59 Intake Total 1100 240 Balance 1100 240 Weight 68.5 kg Intake: Oral 1100 240 Other: Voiding Method Toilet Toilet # Voids 2 2 1 # Bowel Movements 1 - Exam PHYSICAL EXAMINATION: GENERAL: The patient is alert and oriented x3, not in any acute distress. Well developed, well nourished. HEENT: Pupils are round and equally reacting to light. EOMI. No scleral icterus. No conjunctival pallor. Normocephalic, atraumatic. No pharyngeal erythema. No thyromegaly. CARDIOVASCULAR: S1 and S2 present. No murmurs, rubs, or gallops. Patient has a prominent in place PULMONARY: Chest is clear to auscultation, no wheezing or crackles. Patient's chest tube was removed still has ABDOMEN: Soft, nontender, nondistended, normoactive bowel sounds. No palpable organomegaly. MUSCULOSKELETAL: No joint swelling or deformity. EXTREMITIES: No cyanosis, clubbing, or pedal edema. NEUROLOGICAL: Gross neurological examination did not reveal any focal deficits. SKIN: No rashes. Assessment and Plan Plan: -Spontaneous right-sided pneumothorax patient has a chest tube was removed and thorough went in place -Possibility of Marfan's or some other congenital collagen connective tissue disorder, need to be further evaluated as an outpatient for Marfan's. Will need an echocardiogram as an outpatient. -Acute hypoxic respiratory failure secondary to right-sided pneumothorax.
[2018-03-28] MEDS: HYDROmorphone 0.5 MG/0.5 ML SYRINGE IVP PRN (00:21)
[2018-03-28] MEDS: SODIUM CHLORIDE 0.9% 1,000 ML IV SCH (04:40)
[2018-03-28] MEDS: KETOROLAC 30 MG/ML 1 ML VIAL IVP PRN ×2 (05:27→11:30)
[2018-03-28 06:27] VITALS: BP 115/81; PULSE 67; RESP 16; TEMP 97.6
--- NOTE | 2018-03-28 08:13 | XR ---
EXAMINATION TYPE: XR chest 2V DATE OF EXAM: 03/28/2018 COMPARISON: 03/27/2018 HISTORY: 22-year-old male follow-up right-sided pneumothorax TECHNIQUE: Frontal and lateral views FINDINGS: Heart normal size. Aorta and pulmonary vasculature within normal limits. Right-sided Thora vent remai ns in place. Right apical pneumothorax with small and minimally larger from previous measuring 2.9 cm in the apical margin versus 2.0 cm on 03/27/2018. Otherwise, no consolidation or pleural effusion. IMPRESSION: Continued small right apical pneumothorax, slightly increased in size (2.9 cm versus 2.0 cm, previous ly). Thora vent remains in place.
[2018-03-28 08:18] LABS: INR 1.1 (<1.2); Partial Thromboplastin Time 23.7 sec (22.0-30.0); Prothrombin Time 10.5 sec (9.0-12.0)
[2018-03-28 08:20] LABS: Basophils % (A) 0 %; Eosinophils # (A) 0.2 k/uL (0-0.7); Eosinophils % (A) 4 %; HCT 43.5 % (39.0-53.0); HGB 15.1 gm/dL (13.0-17.5); Lymphocytes # (A) 1.5 k/uL (1.0-4.8); Lymphocytes % (A) 33 %; MCH 30.4 pg (25.0-35.0); MCHC 34.7 g/dL (31.0-37.0); MCV 87.7 fL (80.0-100.0); Mean Platelet Volume 6.4; Monocytes # (A) 0.3 k/uL (0-1.0); Monocytes % (A) 6 %; Neutrophils # (A) 2.7 k/uL (1.3-7.7); Neutrophils % (A) 56 %; Platelet Count 199 k/uL (150-450); RBC 4.96 m/uL (4.30-5.90); RDW 12.7 % (11.5-15.5); WBC 4.8 k/uL (3.8-10.6)
[2018-03-28 08:38] LABS: ALT 25 U/L (21-72); AST 19 U/L (17-59); Alkaline Phosphatase 74 U/L (38-126); Anion Gap 10 mmol/L; Blood Urea Nitrogen 20 mg/dL (9-20); Calcium 9.1 mg/dL (8.4-10.2); Carbon Dioxide 29 mmol/L (22-30); Chloride 104 mmol/L (98-107); Glucose 111 mg/dL (74-99); Potassium 4.7 mmol/L (3.5-5.1); Sodium 143 mmol/L (137-145); Total Bilirubin 0.5 mg/dL (0.2-1.3); Total Protein 6.2 g/dL (6.3-8.2)
[2018-03-28] MEDS: FAMOTIDINE 20 MG TAB PO SCH (08:38)
--- NOTE | 2018-03-28 10:56 | P.PN ---
Subjective Progress Note Date: 03/28/18 Principal diagnosis: Spontaneous right-sided pneumothorax. No previous medical history other than questionable exercise-induced asthma in his early teens for which he received no treatment. POD #4 thoravent placement by the emergency room physicians. Patient's currently sitting up to bedside chair, in no acute distress. Family member at bedside. States his pain is controlled on current medications. Denies shortness of breath. No new complaints. He reports that he has been ambulating in the hallway without difficulty. Right anterior chest Thoravent showing air leak. Objective - Vital Signs Vital signs: Vital Signs Temp 97.6 F 03/28/18 05:25 Pulse 67 03/28/18 05:25 Resp 16 03/28/18 05:25 BP 115/81 03/28/18 05:25 Pulse Ox 97 03/28/18 05:25 Intake & Output 03/27/18 03/28/18 03/28/18 18:59 06:59 18:59 Intake Total 480 Balance 480 Intake: Oral 480 Other: # Voids 1 1 - Constitutional General appearance: Present: cooperative, no acute distress - Respiratory Details: Lungs sounds essentially clear throughout. Respirations are symmetrical and nonlabored. Oxygen saturation are 97% on room air. He is achieving 4000 mL on his incentive spirometry. Right anterior chest Thoravent in place with positive air leak. - Cardiovascular Details: Regular rhythm and rate. S1 and S2 present, negative for S3, gallop or murmur. No edema present. - Gastrointestinal Gastrointestinal Comment(s): Abdomen is soft, nontender and nondistended. Active bowel sounds all 4 abdominal quadrants. Tolerating oral intake. No guarding or rigidity. No organomegaly. - Genitourinary Genitourinary Comment(s): Voiding clear yellow urine. - Integumentary Integumentary Comment(s): Skin is warm and dry. No clubbing or cyanosis present. No rash or abnormal pigmentation present. - Neurologic Neurologic: Present: CNII-XII intact - Musculoskeletal Musculoskeletal: Present: gait normal, strength equal bilaterally - Psychiatric Psychiatric: Present: A&O x's 3, appropriate affect, intact judgment & insight - Allied health notes Allied health notes reviewed: nursing - Labs CBC & Chem 7: 03/28/18 07:53 03/28/18 07:53 Labs: Abnormal Lab Results - Last 24 Hours (Table) 03/28/18 Range/Units 07:53 Glucose 111 H (74-99) mg/dL Total Protein 6.2 L (6.3-8.2) g/dL - Imaging and Cardiology Chest x-ray: report reviewed, image reviewed Assessment and Plan (1) Spontaneous pneumothorax Current Visit: Yes Status: Acute Code(s): J93.83 - OTHER PNEUMOTHORAX SNOMED Code(s): 86161104 (2) Thoracostomy tube in place Current Visit: Yes Status: Acute Code(s): Z96.89 - PRESENCE OF OTHER SPECIFIED FUNCTIONAL IMPLANTS SNOMED Code(s): 804741239 Plan: 1. Continue Thoravent. Will check x-ray daily. 2. Medical management per primary care, pulmonology. 3. Encourage incentive spirometry use 10 times every hour. 4. Pain management with ordered medications. 5. Encourage ambulation in the hallway. 6. Will monitor for resolution of pneumothorax. 8. More recommendations to follow based on patient's clinical course. Per the cardiothoracic surgery standpoint the patient may be discharged home and monitored on an outpatient basis with his Thoravent in place. He has been instructed on care of his Thoravent. We will schedule a follow-up appointment for this 04/01/2018 to reevaluate his chest x-ray and air leak. Time with Patient: Greater than 30
--- NOTE | 2018-03-28 14:39 | P.DS ---
Providers Date of admission: 03/24/18 19:39 Attending physician: Luc Loera Consults: 03/24/18 19:40 Consult Physician Urgent Consulting Provider: Yesica Lockwood Consult Reason/Comments: Pneumothorax Do you want consulting provider notified?: Already Contacted 03/25/18 07:36 Consult Physician Stat Consulting Provider: Mai Ford Consult Reason/Comments: worsening right pneumothorax, pt has thoravent Do you want consulting provider notified?: Yes Primary care physician: Luc Loera Hospital Course: Patient was admitted with a spontaneous pneumothorax patient has a right-sided chest tube, suctioning was discontinued. His chest pain is well-controlled. 03/27/2018 Patient's chest tube was removed, is clinically doing well and repeat chest x- ray tomorrow possibility of discharge tomorrow. 03/28/2018 Patient is cleared for discharge from cardiac cardiothoracic's surgery perspective and patient will be discharged today and patient will follow Dr. Luc Loera as an outpatient. Patient will need to be tested for genetic conditions and connective tissue disorders like Marfan syndrome. Patient will need an outpatient echocardiogram to evaluate for mitral valve prolapse PHYSICAL EXAMINATION: GENERAL: The patient is alert and oriented x3, not in any acute distress. Well developed, well nourished. HEENT: Pupils are round and equally reacting to light. EOMI. No scleral icterus. No conjunctival pallor. Normocephalic, atraumatic. No pharyngeal erythema. No thyromegaly. CARDIOVASCULAR: S1 and S2 present. No murmurs, rubs, or gallops. Patient has a prominent in place PULMONARY: Chest is clear to auscultation, no wheezing or crackles. Patient's chest tube was removed still has ABDOMEN: Soft, nontender, nondistended, normoactive bowel sounds. No palpable organomegaly. MUSCULOSKELETAL: No joint swelling or deformity. EXTREMITIES: No cyanosis, clubbing, or pedal edema. NEUROLOGICAL: Gross neurological examination did not reveal any focal deficits. SKIN: No rashes. Assessment and Plan Plan: -Spontaneous right-sided pneumothorax patient has a chest tube was removed and thorough went in place -Possibility of Marfan's or some other congenital collagen connective tissue disorder, need to be further evaluated as an outpatient for Marfan's. Will need an echocardiogram as an outpatient. -Acute hypoxic respiratory failure secondary to right-sided pneumothorax. Resolved now Patient Condition at Discharge: Stable Plan - Discharge Summary New Discharge Prescriptions: No Action No Known Home Medications Discharge Medication List No Known Home Medications 03/24/18 [History] Follow up Appointment(s)/Referral(s): Chanell Keita NPC [Nurse Practitioner] - 04/01/18 Mai Ford MD [STAFF PHYSICIAN] - 1 Week (Thora-vent Wednesday, if problem make appointment for Wednesday) Luc Loera DO [Primary Care Provider] - 04/11/18 5:40 pm Ambulatory/Diagnostic Orders: XR chest 2V [RAD.AMB] Time Frame: 04/01/18, Facility: [facility], Location: [facility] Patient Instructions/Handouts: Spontaneous Pneumothorax (DC) Activity/Diet/Wound Care/Special Instructions: regular diet as tolerated cover right chest thoravent while showering Chanell Keita LETTER OF CREDIT CLERK [id number] Amber Rivas LETTER OF CREDIT CLERK [id number] Come in Wednesday for Chest XRAY and contact either chanell keita or amber rivas for thoravent followup Discharge/Stand Alone Forms: Work/School Release Discharge Disposition: HOME SELF-CARE
--- NOTE | 2018-03-28 15:06 | P.PN ---
Subjective Progress Note Date: 03/28/18 Principal diagnosis: Acute right-sided spontaneous pneumothorax Placido is a 22-year-old white male patient of Dr. Luc Loera, who presented to the emergency department per EMS on at 1650 with complaints of increased shortness of breath, right-sided chest pain. 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 Chest x- ray in the emergency room revealed 100% right pneumothorax with mediastinal shift to the left. Patient had a thoravent placed by the emergency room physician, and subsequent chest x-rays yesterday showed significant improvement of the right-sided pneumothorax with a residual of 25% right pneumothorax. However on today's chest x-rays from this morning patient was noted to have an enlarging right-sided pneumothorax estimated at 40% with slight shift of the heart towards the left, and the thoravent was placed to continuous wall suction. Cardiothoracic surgery was consulted, follow-up chest x-ray from 10: 00 today shows reexpansion of the right lung. Patient denies previous episodes of collapse, he is a nonsmoker, does not smoke marijuana or do any other recreational drugs. No history of trauma. Patient was seen this morning in consultation for spontaneous right pneumothorax, he is home and comfortable, there is a Thoravent in the right upper chest connected to continuous suction, is still a small air leak noted. Patient is on high flow oxygen at 8 L, with a pulse ox of 99%. He is achieving 2200 on the incentive spirometry, is having some moderate amount of discomfort in the right upper chest area at the insertion site of the Thoravent. This is reasonably well controlled by Dilaudid. Otherwise patient is fairly comfortable, no other medical history, no prior surgeries. The patient is seen again today 03/26/2018 in follow-up on the regular medical floor. He is awake and alert in no acute distress. He is breathing easier today as compared to yesterday. Today's chest x-ray shows a small apical pneumothorax. Thoravent remains in place currently to [facility]. He remains on 8 L high flow nasal cannula. He is working well with the incentive spirometer. Patient was reevaluated today on 03/27/2018, doing well, his thoravent remains in place, disconnected from wall suction, patient has a 10% right-sided pneumothorax, there and diaphragm in the device does not seem to be moving much. Which implies that no air leak is noted. Remains on high flow nasal cannula based on recent limited reports suggesting that high flow nasal cannula may improve rapid resolution of pneumothorax. But the patient is actually saturating fine on room air. On 03/28/2018 patient was seen and examined again on medical surgical floor. The patient remains in place, it is disconnected from wall suction. Today's chest x-ray shows right apical pneumothorax, with small and minimally larger from previous measuring 2.9 cm and the apical margin versus 2.0 cm from yesterday on 03/27/2018. Patient remains stable, vitals are stable, he is controlled. Room air pulse ox is 98%, patient is afebrile, lung sounds are clear to auscultation. he is going home today with the Thoravent in place he will be followed up outpatient basis by the CT surgery and Dr. Rojas. Objective - Vital Signs Vital signs: Vital Signs Temp 97.6 F 03/28/18 05:25 Pulse 67 03/28/18 05:25 Resp 16 03/28/18 05:25 BP 115/81 03/28/18 05:25 Pulse Ox 98 03/28/18 09:30 Intake & Output 03/27/18 03/28/18 03/28/18 18:59 06:59 18:59 Intake Total 480 Balance 480 Intake: Oral 480 Other: # Voids 1 1 2 - Exam GENERAL EXAM: Alert, pleasant, thin and tall young white male, comfortable in no apparent distress. On 8 L per high flow nasal cannula HEAD: Normocephalic/atraumatic. EYES: Normal reaction of pupils, equal size. Conjunctiva pink, sclera white. NOSE: Clear with pink turbinates. THROAT: No erythema or exudates. NECK: No masses, no JVD, no thyroid enlargement, no adenopathy. CHEST: No chest wall deformity. right upper chest Thoravent disconnected from wall suction LUNGS: Equal air entry with no crackles, wheeze, rhonchi or dullness. Clear lung sounds bilaterally CVS: Regular rate and rhythm, normal S1 and S2, no gallops, no murmurs, no rubs ABDOMEN: Soft, nontender. No hepatosplenomegaly, normal bowel sounds, no guarding or rigidity. EXTREMITIES: No clubbing, no edema, no cyanosis, 2+ pulses and upper and lower extremities. MUSCULOSKELETAL: Muscle strength and tone normal. SPINE: No scoliosis or deformity SKIN: No rashes CENTRAL NERVOUS SYSTEM: Alert and oriented -3. No focal deficits, tone is normal in all 4 extremities. PSYCHIATRIC: Alert and oriented -3. Appropriate affect. Intact judgment and insight. - Labs CBC & Chem 7: 03/28/18 07:53 03/28/18 07:53 Labs: Abnormal Lab Results - Last 24 Hours (Table) 03/28/18 Range/Units 07:53 Glucose 111 H (74-99) mg/dL Total Protein 6.2 L (6.3-8.2) g/dL Assessment and Plan Plan: Assessment: #1. Spontaneous right pneumothorax, status post Thoravent placement #2. Dyspnea, chest pain, hypoxemia, due to the above, improved #3. Lifetime nonsmoker Plan: Patient is clear for discharge and pulmonary standpoint, with with Thoravent in place. He will be seen in outpatient basis by Dr. Rojas, and CT surgery chest x-ray will be done. Patient was instructed to avoid any heavy lifting, or breath holding. Remains stable, no acute events overnight. I performed a history & physical examination of the patient and discussed their management with my nurse practitioner, Polina Slater. I reviewed the nurse practitioner's note and agree with the documented findings and plan of care. Lung sounds are positive diminished lung sounds. The findings and the impression was discussed with the patient. I attest to the documentation by the nurse practitioner. Time with Patient: Less than 30
== END 2018-03-28 14:17 | disposition home or self-care (01) | DRG 199 ==
LOC: EC 16:50 → 4MS4W 19:39 → 5MS5E 03-25 23:12 → 4MS4W 03-25 23:12
PROVIDERS: ADMIT Family Medicine; ATTEND Family Medicine
PROC: 0W9930Z Drainage of Right Pleural Cavity with Drainage Device, Percutaneous Approach (ICD-10-PCS; principal; 2018-03-24)
DX: J93.83 Other pneumothorax (principal); J96.01 Acute respiratory failure with hypoxia; Q87.40 Marfan syndrome, unspecified
CPT/HCPCS: 32551; 71045; 71046; 80053; 85025; 85610; 85730; 93005; 94760; 96374; 96375; 96376; 99291

== ENCOUNTER → 2018-04-01 | Outpatient (CLI) | payer BC ==
--- NOTE | 2018-04-01 14:00 | XR ---
EXAMINATION TYPE: XR chest 2V DATE OF EXAM: 04/01/2018 COMPARISON: Prior chest 03/28/2018 HISTORY: Pneumothorax TECHNIQUE: Frontal and lateral views of the chest are obtained. FINDINGS: Findings are similar to prior exam. There is a thoracic vent noted within the catheter cou rsing towards the right hemithorax apex. Prominent lung volumes are again noted. Heart is small. Tanesha ent appears rotated. Apical pneumothorax persists. No evident effusion. IMPRESSION: Stable right apical pneumothorax with chest tube in place.
== END | disposition home or self-care (01) ==
LOC: RADXRMAIN 11:39
PROVIDERS: ATTEND Nurse Practitioner Family
DX: J93.9 Pneumothorax, unspecified (principal)
CPT/HCPCS: 71046

== ENCOUNTER → 2018-04-08 | Outpatient (CLI) | payer BC ==
--- NOTE | 2018-04-08 12:24 | XR ---
EXAMINATION TYPE: XR chest 2V DATE OF EXAM: 04/08/2018 COMPARISON: 04/01/2018 HISTORY: Spontaneous pneumothorax. Follow-up exam. TECHNIQUE: Frontal and lateral views of the chest are obtained. FINDINGS: There is pulmonary hyperinflation likely related to the degree of inspiration. The previou sly seen right apical pneumothorax appears to have resolved in the interim. Right thoravent has been removed in the interim. There is a mild dextroscoliotic curvature of the thoracic spine. There is no focal air space opacity, pleural effusion, or pulmonary vascular congestion seen. The cardiac silhou ette size is within normal limits. The osseous structures are intact. IMPRESSION: Resolution of the previously seen right apical spontaneous pneumothorax. No acute cardio pulmonary process seen.
== END | disposition home or self-care (01) ==
LOC: RADXRMAIN 11:10
PROVIDERS: ATTEND Surgery
DX: Z09 Encounter for follow-up examination after completed treatment for conditions other than malignant neoplasm (principal); Z87.09 Personal history of other diseases of the respiratory system
CPT/HCPCS: 71046

== ENCOUNTER → 2019-01-17 | Outpatient (CLI) | payer BC ==
--- NOTE | 2019-01-18 07:36 | US ---
EXAMINATION TYPE: US scrotum with doppler. Grayscale and color Doppler Duplex imaging performed of t eh scrotum. DATE OF EXAM: 01/17/2019 COMPARISON: NONE CLINICAL HISTORY: N50.89 Testicular Mass. Lump on left testicle. EXAM MEASUREMENTS: TESTICLES: Right Testicle: 3.7 x 1.8 x 2.9 cm Left Testicle: 3.7 x 2.1 x 3.4 cm EPIDIDYMIS HEAD: Right Epididymis: .6 cm Left Epididymis: .7 cm Doppler performed to assess for testicular vascularity; good bilateral color flow and waveforms are s een. There is no evidence of testicular torsion. Presence of hydroceles: No Presence of varicoceles: No Left epididymis cystic area 0.3cm. IMPRESSION: 3 mm left epididymal cyst. Otherwise unremarkable scrotal ultrasound.
== END | disposition home or self-care (01) ==
LOC: RADUSMAIN 17:45
PROVIDERS: ATTEND Family Medicine
DX: N50.3 Cyst of epididymis (principal)
CPT/HCPCS: 76870

== ENCOUNTER → 2019-01-25 | Outpatient (CLI) | payer BC ==
--- NOTE | 2019-01-31 17:06 | P.STRESS ---
- Stress Test Note Stress Test Results/Findings: Exam Performed: Exam Date: Reason for Exam: Height: Weight: Protocol: Stage: Duration of Exercise: Resting Heart Rate: Resting Blood Pressure: Maximum Achieved Heart Rate: Maximum Achieved Blood Pressure: 85% PMHR: 100% PMHR: METS: Technologist Comment: Stress Test Results/Findings: Holter monitor shows sinus mechanism heart rates ranging from 41-156 beats a minute average 76 beats a minute normal TN interval occasional PACs and PVCs Few brief episodes of nonsustained atrial tachycardia, brief PACs noted
== END | disposition home or self-care (01) ==
LOC: RADECHMAIN 11:48
PROVIDERS: ATTEND Family Medicine
DX: I49.1 Atrial premature depolarization (principal); I47.1 Supraventricular tachycardia
CPT/HCPCS: 93225; 93226

== ENCOUNTER 2019-03-30 19:38 | Emergency (ER) | payer BC ==
[2019-03-30 19:43] VITALS: BP 149/86; PULSE 81; RESP 16; TEMP 98.6
--- NOTE | 2019-03-30 20:03 | ED ---
General Adult HPI - General Chief complaint: Skin/Abscess/Foreign Body Stated complaint: Knee injury Time Seen by Provider: 03/30/19 19:47 Source: patient, family, RN notes reviewed Mode of arrival: ambulatory Limitations: no limitations - History of Present Illness Initial comments: 23-year-old male no significant past medical history presenting for evaluation of abrasion to the left knee with adjacent redness. Patient had an abrasion secondary to softball injury which occurred 2 days prior to arrival. He's had some redness or warmth to the lateral aspect of the knee in the area surrounding this abrasion. No fever chills, no medication ALLERGIES. - Related Data Previous Rx's Medication Instructions Recorded Cephalexin [Keflex] 500 mg PO QID #28 cap 03/30/19 Allergies Allergy/AdvReac Type Severity Reaction Status Date / Time No Known Allergies Allergy Verified 03/30/19 19:57 Review of Systems ROS Statement: Those systems with pertinent positive or pertinent negative responses have been documented in the HPI. ROS Other: All systems not noted in ROS Statement are negative. Past Medical History Additional Past Medical History / Comment(s): heart murmur, mono 2014, seasonal allergies History of Any Multi-Drug Resistant Organisms: None Reported Past Surgical History: No Surgical Hx Reported Additional Past Surgical History / Comment(s): Thoravent Past Psychological History: No Psychological Hx Reported Smoking Status: Never smoker Past Alcohol Use History: None Reported Past Drug Use History: None Reported General Exam Limitations: no limitations General appearance: alert, in no apparent distress Head exam: Present: atraumatic, normocephalic Eye exam: Present: normal appearance, PERRL ENT exam: Present: normal exam Neck exam: Present: normal inspection. Absent: tenderness, meningismus Respiratory exam: Present: normal lung sounds bilaterally. Absent: respiratory distress, wheezes Cardiovascular Exam: Present: regular rate, normal rhythm GI/Abdominal exam: Present: soft. Absent: distended, tenderness, guarding Extremities exam: Present: other (Left knee: Abrasion, no active hemorrhage, appropriate healing. There is erythema lateral to the abrasion with very mild induration. No fluctuance, normal range of motion at the knee, no knee effusion.). Absent: joint swelling Course Vital Signs 03/30/19 19:38 Temperature 98.6 F Pulse Rate 81 Respiratory 16 Rate Blood Pressure 149/86 O2 Sat by Pulse 99 Oximetry Medical Decision Making - Medical Decision Making 23-year-old male with cellulitis secondary to abrasion of the left knee. Will be started on antibiotics. Given return parameters. Disposition Clinical Impression: Cellulitis, Abrasion Disposition: HOME SELF-CARE Condition: Good Instructions (If sedation given, give patient instructions): Abrasion (ED), Cellulitis (ED) Prescriptions: Cephalexin [Keflex] 500 mg PO QID #28 cap Is patient prescribed a controlled substance at d/c from ED?: No Referrals: Luc Loera DO [Primary Care Provider] - 1-2 days Time of Disposition: 20:02
== END 2019-03-30 20:14 | disposition home or self-care (01) ==
LOC: EC 19:38
DX: S80.212A Abrasion, left knee, initial encounter (principal); L03.116 Cellulitis of left lower limb; W21.07XA Struck by softball, initial encounter
CPT/HCPCS: 99283

== ENCOUNTER 2019-03-31 23:14 | Emergency (ER) | payer BC ==
--- NOTE | 2019-04-01 00:12 | ED ---
Skin/Abscess/FB HPI - General Chief complaint: Skin/Abscess/Foreign Body Stated complaint: Possible Leg Infection Source: patient Mode of arrival: ambulatory - History of Present Illness Initial comments: Placido is a 23-year-old gentleman who was seen and evaluated in the emergency department yesterday for cellulitis of the left knee, patient reports he's been compliant with his Keflex however he has noted the erythema which was marked yesterday has extended significantly down his leg so he came to the ER for reevaluation. Patient reports he is otherwise feeling fine he went to work today he was on his feet all day he is able to walk without pain or difficulty. Patient scratched his left knee sliding while playing baseball, he then reopened it earlier this week at which time he noticed the redness and swelling and was seen in our ER. Patient denies any associated symptoms he denies any history of MRSA. Patient is nondiabetic. - Related Data Previous Rx's Medication Instructions Recorded Cephalexin [Keflex] 500 mg PO QID #28 cap 03/30/19 Sulfamethox-Tmp 800-160Mg [Bactrim 1 tab PO Q12HR #14 tab 04/01/19 DS 800-160 mg] Allergies Allergy/AdvReac Type Severity Reaction Status Date / Time No Known Allergies Allergy Verified 03/31/19 23:27 Review of Systems ROS Statement: Those systems with pertinent positive or pertinent negative responses have been documented in the HPI. ROS Other: All systems not noted in ROS Statement are negative. Past Medical History Additional Past Medical History / Comment(s): heart murmur, mono 2013, seasonal allergies History of Any Multi-Drug Resistant Organisms: None Reported Past Surgical History: No Surgical Hx Reported Additional Past Surgical History / Comment(s): Thoravent Past Psychological History: No Psychological Hx Reported Smoking Status: Never smoker Past Alcohol Use History: None Reported Past Drug Use History: None Reported General Exam - General Exam Comments Initial Comments: Physical Exam GENERAL: Patient is well-developed and well-nourished. Patient is nontoxic and well-hydrated and is in no distress. HENT: Normocephalic, Atraumatic. EYES: PERRL, EOMI PULMONARY: Unlabored respirations. CARDIOVASCULAR: RRR ABDOMEN: Non-distended SKIN: Well healing abrasion of left knee Surrounding erythema, no purlulence or focal abscess : Deferred NEUROLOGIC: Patient is alert and oriented x3. Moving all extremities spontaneously MUSCULOSKELETAL: Full ROM of left knee without pain PSYCHIATRIC: Normal psychiatric evaluation Course Vital Signs 03/31/19 04/01/19 23:17 00:51 Temperature 97.8 F 98.5 F Pulse Rate 77 68 Respiratory 16 18 Rate Blood Pressure 146/84 127/79 O2 Sat by Pulse 100 99 Oximetry Medical Decision Making - Medical Decision Making Patient was seen and evaluated by psych patient is very well appearing his cellulitis does seem to be extending, we will add Bactrim for MRSA coverage. All questions pertaining care were answered return parameters were discussed first dose of Bactrim given in the ER patient was discharged home in stable condition Disposition Clinical Impression: Cellulitis Disposition: HOME SELF-CARE Condition: Stable Instructions (If sedation given, give patient instructions): Cellulitis (DC) Prescriptions: Sulfamethox-Tmp 800-160Mg [Bactrim DS 800-160 mg] 1 tab PO Q12HR #14 tab Is patient prescribed a controlled substance at d/c from ED?: No Referrals: Luc Loera DO [Primary Care Provider] - 1-2 days
[2019-04-01] MEDS ORDERED: SULFAMETH-TMP DS STARTER PACK 2 TAB BTL PO STA (00:34)
[2019-04-01 00:54] VITALS: BP 127/79; PULSE 68; RESP 18; TEMP 98.5
== END 2019-04-01 00:51 | disposition home or self-care (01) ==
LOC: EC 23:14
DX: L03.116 Cellulitis of left lower limb (principal); S80.212D Abrasion, left knee, subsequent encounter; X58.XXXD Exposure to other specified factors, subsequent encounter
CPT/HCPCS: 99282

== ENCOUNTER → 2020-02-29 | Outpatient (CLI) | payer BC ==
--- NOTE | 2020-02-29 11:22 | US ---
EXAMINATION TYPE: US abdomen limited DATE OF EXAM: 02/29/2020 COMPARISON: None CLINICAL HISTORY: R94.5 abnormal liver function. Abnormal labs EXAM MEASUREMENTS: Liver Length: 17.2 cm Gallbladder Wall: 0.2 cm CBD: 0.3 cm Right Kidney: 10.0 x 4.3 x 4.7 cm Pancreas: Tail obscured by overlying bowel gas Liver: wnl Gallbladder: wnl Evidence for sonographic Estrada's sign: neg CBD: wnl Right Kidney: No hydronephrosis or masses seen IMPRESSION: Homogeneous echotexture of the hepatic parenchyma despite transaminitis. No suspicious so nographic findings.
== END | disposition home or self-care (01) ==
LOC: RADUSWWP 10:54
PROVIDERS: ATTEND Family Medicine
DX: R74.0 Nonspecific elevation of levels of transaminase and lactic acid dehydrogenase [LDH] (principal)
CPT/HCPCS: 76705

== ENCOUNTER → 2022-06-24 | Outpatient (CLI) | payer OTHER ==
--- NOTE | 2022-06-24 11:17 | CT ---
EXAMINATION TYPE: CT ankle RT wo con DATE OF EXAM: 06/24/2022 COMPARISON: Plain films 06/11/2022 HISTORY: Fractured right ankle CT DLP: [id number] Automated exposure control for dose reduction was used. Contrast: None Technique: Axial images 3 mm thick sections. Reconstructed images in the coronal and sagittal planes. FINDINGS: There is mild soft tissue swelling at the distal ankle. Fixation screws are within the distal diaphys eal tibia and within the calcaneus. Fixation rods are external. The long oblique fracture of the metadiaphyseal fibula is evident. There is some diastases of the fra cture fragments in the axial plane. There is a posterior tibial fracture. This is somewhat comminuted at the inferior aspect. Tiny amount of anterior lateral tibial fracture may be present as well adjacent to the fibula. No new fractures are evident. The ankle mortise appears intact. Medial collateral ankle mortise spacing appears normal on this exam . IMPRESSION: 1. EXTERNAL FIXATION DEVICE FOR DISTAL FIBULAR AND POSTERIOR TIBIAL FRACTURE. ALIGNMENT APPEARS NEAR- ANATOMIC.
== END | disposition home or self-care (01) ==
LOC: RADCTMAIN 06:53
PROVIDERS: ATTEND Orthopaedic Surgery Orthopaedic Trauma
DX: S82.841A Displaced bimalleolar fracture of right lower leg, initial encounter for closed fracture (principal)